=== PATIENT | female | born 1970 | race Hispanic/Latino ===

== ENCOUNTER 2024-03-14 01:22 | Inpatient (IN) | payer BC ==
[2024-03-14 02:09] LABS: #Basophils 0.03 10x3/uL (0.0-0.2); %Basophils 0.4 % (0.0-1.0); %Eosinophils 1.4 % (0.0-10.0); %Lymphocytes 36.5 % (21.0-51.0); %Monocytes 12.2 % (0.0-10.0); %Neutrophils 49.4 % (42.0-75.0); Hematocrit 38.8 % (36.0-47.0); Hemoglobin 13.3 g/dL (12.0-16.0); Mean Corpuscular HGB CONC 34.3 g/dL (32.0-36.0); Mean Corpuscular Hemoglobin 27.3 pg (27.0-31.0); Mean Corpuscular Volume 79.5 fL (78.0-98.0); Mean Platelet Volume 11.6 fL (7.4-10.4); Platelet Count 230 10x3/uL (130-400); RBC Distribution Width 13.4 % (11.5-14.5); Red Blood Cell (RBC) Count 4.88 mill/uL (4.20-5.40)
[2024-03-14] MEDS ORDERED: Sucralfate 1 GM/10 ML UDCUP ONE (02:12)
[2024-03-14] MEDS ORDERED: Famotidine/PF 20 mg/2ml Vial ONE (02:12)
[2024-03-14] MEDS ORDERED: Ondansetron PF 4 MG/2 ML Vial ONE (02:12)
[2024-03-14 02:15] LABS: Bacteria/HPF None Seen HPF (None Seen); Bilirubin Negative (Negative); Blood, Urine Negative (Negative); CAUTI Indications for Culture Pelvic or flank pain; Clarity Turbid (Clear); Glucose, Urine (Dipstick) Normal (Negative); Ketone, Urine Negative (Negative); Leukocyte Negative Leu/uL (Negative); Nitrite Negative (Negative); Protein, Urine (Dipstick) Negative (Neg-Trace); RBC/HPF 0-3 HPF (0-3); Specific Gravity, Urine 1.001 (1.002-1.036); Squamous Epithelial None Seen HPF (0-3); Urobilinogen Normal mg/dL (Less than 2); WBC/HPF 0-3 HPF (0-3)
[2024-03-14 02:17] LABS: Urine Culture Reflex No No
[2024-03-14 02:19] LABS: Amphetamine Not Detected (NotDetected); Barbiturates Screen Not Detected (NotDetected); Benzodiazepine Screen Not Detected (NotDetected); Cocaine Metabolite Screen Not Detected (NotDetected); Methadone Not Detected (NotDetected); Methamphetamine Not Detected (NotDetected); Opiate Screen Not Detected (NotDetected); Oxycodone Screen Not Detected (NotDetected); Phencyclidine (PCP) Not Detected (NotDetected); THC/Cannabinoid Screen Not Detected (NotDetected); Tricyclic Screen Not Detected (NotDetected)
[2024-03-14 02:27] LABS: ALT (SGPT) 47 U/L (8-55); AST (SGOT) 28 U/L (5-34); Acetaminophen Less than 10 mcg/mL (Less than 10); Albumin 4.2 g/dL (3.5-5.0); Alcohol Less than 10.0 mg/dL (Less than 10); Alkaline Phosphatase 119 U/L (40-110); Anion Gap 17 mmol/L (10-20); BUN (Urea Nitrogen) 10 mg/dL (9.8-20.1); Bilirubin, Total 1.3 mg/dL (0.2-1.2); CK (CPK) 21 U/L (29-168); Calc. Creatinine Clearance 0 mL/min (70-130); Calcium 12.6 mg/dL (7.8-10.44); Carbon Dioxide 24 mmol/L (22-29); Chloride 107 mmol/L (98-107); Estimated GFR 108; Globulin 3.3 g/dL (2.4-3.5); Glucose 125 mg/dL (70-105); Lipase 39 U/L (8-78); Magnesium 1.5 mg/dL (1.6-2.6); Potassium 2.7 mmol/L (3.5-5.1); Protein, Total 7.5 g/dL (6.0-8.3); Salicylate Less than 8.0 mg/dL (Less than 8.0); Sodium 145 mmol/L (136-145)
[2024-03-14] MEDS ORDERED: Mag-Al 1200 mg/1200 mg/30 ML UDCUP ONE (02:30)
[2024-03-14 02:32] LABS: Troponin I 0.028 ng/mL (< 0.028)
[2024-03-14] MEDS ORDERED: Lidocaine Viscous Sol 2% 15 ml UD Cup ONE (02:32)
[2024-03-14 02:33] LABS: Actual Bicarbonate (HCO3v) 25.5 mEq/L (22-28); Base Excess 5.1 mEq/L (-2.0 to +3.0); Calcium, Ionized (venous) 1.34 mmol/L (1.16-1.32); Chloride (VBG) 108 mmol/L (98-106); Hematocrit-VBG 37 % (36.0-47.0); Hemoglobin (Hb) 12.7 g/dL (11.7-16.0); Potassium (VBG) 2.94 mmol/L (3.70-5.30); Sodium 147 mmol/L (133-146); pH (venous) 7.611 (7.32-7.43)
[2024-03-14] MEDS ORDERED: Magnesium 2 GM/50 ML BAG (IN WATER) ONE (02:40)
[2024-03-14] MEDS ORDERED: Potassium Chloride 20 MEQ (100 mL) BAG ONE ×2 (03:04→03:06)
[2024-03-14] MEDS ORDERED: Labetalol HCl 100 MG/20 ML VIAL ONE (03:48)
[2024-03-14 05:08] LABS: Free T4 (Free Thyroxine) Greater than 5.00 ng/dL (0.70-1.48)
[2024-03-14] MEDS ORDERED: Lactated Ringer's 1,000 ML IV SCH (06:45)
[2024-03-14 07:08] VITALS: BMI 22.5
[2024-03-14] MEDS ORDERED: Acetaminophen 325 MG TAB PO PRN (07:21)
[2024-03-14] MEDS ORDERED: Ondansetron ODT 4 MG TAB PO PRN (07:21)
[2024-03-14] MEDS ORDERED: Electrolyte Replacement Protocol 1 EACH FS SCH (07:45)
[2024-03-14] MEDS ORDERED: Electrolyte Replacement Protocol FS PRN (07:45)
[2024-03-14] MEDS ORDERED: Potassium Chloride 20 MEQ TAB PO SCH (08:45)
[2024-03-14] MEDS: Methimazole 10 MG TAB PO SCH ×2 (10:31→12:31)
[2024-03-14] MEDS: Ondansetron PF 4 MG/2 ML Vial IVP PRN (10:37)
[2024-03-14] MEDS: NS 0.9% w/ 40 MEQ KCL 1,000 ML IV SCH (12:32)
[2024-03-14] MEDS ORDERED: Metoclopramide HCl 10 MG (2 mL) VIAL IVP SCH (14:00)
[2024-03-14] MEDS: Pantoprazole 40 MG VIAL IVP SCH ×2 (15:34→20:53)
[2024-03-14] MEDS: Propranolol 10 MG TAB PO PRN (20:52)
[2024-03-15] MEDS: hydrALAZINE 20 MG/ML VIAL SLOW IVP SCH (00:01)
[2024-03-15] MEDS: Metoclopramide HCl 10 MG (2 mL) VIAL IVP PRN (00:01)
[2024-03-15 04:33] LABS: #Basophils Less than 0.03 10x3/uL (0.0-0.2); %Basophils 0.2 % (0.0-1.0); %Eosinophils 0.5 % (0.0-10.0); %Lymphocytes 18.1 % (21.0-51.0); %Monocytes 9.1 % (0.0-10.0); %Neutrophils 71.7 % (42.0-75.0); Hematocrit 42.3 % (36.0-47.0); Hemoglobin 13.7 g/dL (12.0-16.0); Mean Corpuscular HGB CONC 32.4 g/dL (32.0-36.0); Mean Corpuscular Hemoglobin 27.2 pg (27.0-31.0); Mean Corpuscular Volume 83.9 fL (78.0-98.0); Platelet Count 219 10x3/uL (130-400); RBC Distribution Width 14.3 % (11.5-14.5); Red Blood Cell (RBC) Count 5.04 mill/uL (4.20-5.40)
[2024-03-15 04:56] LABS: Anion Gap 16 mmol/L (10-20); BUN (Urea Nitrogen) 13 mg/dL (9.8-20.1); Calc. Creatinine Clearance 82 mL/min (70-130); Calcium 13.4 mg/dL (7.8-10.44); Carbon Dioxide 26 mmol/L (22-29); Chloride 117 mmol/L (98-107); Estimated GFR 105; Glucose 111 mg/dL (70-105); Potassium 3.8 mmol/L (3.5-5.1); Sodium 155 mmol/L (136-145)
[2024-03-15] MEDS: Dextrose 5% in Water 1,000 ML IV SCH ×4 (05:57→15:42)
[2024-03-15 07:52] LABS: Phosphorus 4.8 mg/dL (2.3-4.7)
[2024-03-15] MEDS: Magnesium 2 GM/50 ML(in water) 2 GM in Premix 1 BAG IVPB SCH (08:04)
[2024-03-15] MEDS: CALCITONIN SALMON SYNTHETIC SC SCH (08:57)
[2024-03-15] MEDS ORDERED: Propranolol 40 MG TAB PO SCH (09:00)
[2024-03-15] MEDS ORDERED: fentaNYL 50 mcg/mL 1 mL Vial ONE (10:03)
[2024-03-15] MEDS ORDERED: PROPOFOL 0 ML ONE (10:03)
[2024-03-15 10:27] VITALS: BMI 22.5
[2024-03-15] MEDS: Aspirin 81 mg Enteric Coated Tablet PO SCH (10:57)
[2024-03-15] MEDS: Labetalol HCl 100 MG/20 ML VIAL SLOW IVP PRN (11:05)
[2024-03-15] MEDS ORDERED: ALPRAZolam 0.25 MG TAB PO PRN (11:18)
[2024-03-15 12:39] LABS: Troponin I 0.029 ng/mL (< 0.028)
[2024-03-15] MEDS: Propranolol 40 MG TAB PO SCH ×2 (12:40→14:14)
[2024-03-15] MEDS: Loratadine 10 MG TAB PO SCH (12:40)
[2024-03-15 19:43] LABS: Albumin 3.5 g/dL (3.5-5.0); Anion Gap 14 mmol/L (10-20); BUN (Urea Nitrogen) 16 mg/dL (9.8-20.1); BUN/Creatinine Ratio 29.09; Calc. Creatinine Clearance 103 mL/min (70-130); Calcium 9.7 mg/dL (7.8-10.44); Carbon Dioxide 23 mmol/L (22-29); Chloride 110 mmol/L (98-107); Estimated GFR 111; Glucose 178 mg/dL (70-105); Phosphorus 2.9 mg/dL (2.3-4.7); Potassium 3.2 mmol/L (3.5-5.1); Sodium 144 mmol/L (136-145)
[2024-03-16] MEDS ORDERED: Potassium Chloride 20 MEQ TAB ONE (09:00)
[2024-03-16] MEDS ORDERED: Loratadine 10 MG TAB ONE ×2 (09:00→09:23)
[2024-03-16] MEDS ORDERED: Pantoprazole DR 40 MG TAB ONE ×3 (09:00→20:18)
[2024-03-16] MEDS ORDERED: Aspirin 81 mg Enteric Coated Tablet ONE ×2 (09:00→09:23)
[2024-03-16] MEDS ORDERED: Methimazole 10 MG TAB ONE ×2 (09:23→10:00)
[2024-03-16] MEDS ORDERED: Propranolol 40 MG TAB ONE ×2 (14:00→21:10)
[2024-03-16] MEDS ORDERED: Ondansetron PF 4 MG/2 ML Vial ONE (17:55)
[2024-03-17] MEDS ORDERED: Methimazole 10 MG TAB ONE ×2 (01:29→18:09)
[2024-03-17] MEDS ORDERED: Labetalol HCl 100 MG/20 ML VIAL ONE ×2 (01:31→20:21)
[2024-03-17] MEDS ORDERED: Potassium Chloride 20 MEQ (100 mL) BAG ONE (05:32)
[2024-03-17] MEDS ORDERED: Propranolol 40 MG TAB ONE ×2 (05:32→15:03)
[2024-03-17] MEDS ORDERED: Amlodipine 5 MG TAB ONE (15:03)
[2024-03-17] MEDS: Loratadine 10 MG TAB PO SCH (17:48)
[2024-03-17] MEDS: FLU (Fluarix Triv) TS24-25(6MOS UP)/PF 45 MCG/0.5 ML Syringe IM ONE (17:50)
[2024-03-17] MEDS ORDERED: Ondansetron ODT 4 MG TAB ONE (20:32)
[2024-03-17 21:15] LABS: Potassium 3.7 mmol/L (3.5-5.1)
[2024-03-17 22:38] LABS: Anion Gap 15 mmol/L (10-20); BUN (Urea Nitrogen) 18 mg/dL (9.8-20.1); Calc. Creatinine Clearance 73 mL/min (70-130); Calcium 11.7 mg/dL (7.8-10.44); Carbon Dioxide 23 mmol/L (22-29); Chloride 115 mmol/L (98-107); Estimated GFR 92; Glucose 152 mg/dL (70-105); Potassium 3.9 mmol/L (3.5-5.1); Sodium 149 mmol/L (136-145)
[2024-03-17 22:41] LABS: #Basophils Less than 0.03 10x3/uL (0.0-0.2); %Basophils 0.4 % (0.0-1.0); %Eosinophils 2.3 % (0.0-10.0); %Lymphocytes 29.9 % (21.0-51.0); Hematocrit 38.3 % (36.0-47.0); Hemoglobin 12.7 g/dL (12.0-16.0); Mean Corpuscular HGB CONC 33.2 g/dL (32.0-36.0); Mean Corpuscular Hemoglobin 27.1 pg (27.0-31.0); Mean Corpuscular Volume 81.8 fL (78.0-98.0); Platelet Count 173 10x3/uL (130-400); RBC Distribution Width 13.7 % (11.5-14.5); Red Blood Cell (RBC) Count 4.68 mill/uL (4.20-5.40)
[2024-03-18] MEDS: Potassium Chloride 20 MEQ (100 mL) BAG ONE (04:07)
[2024-03-18 05:21] LABS: #Basophils Less than 0.03 10x3/uL (0.0-0.2); %Basophils 0.2 % (0.0-1.0); %Eosinophils 3.7 % (0.0-10.0); %Lymphocytes 36.9 % (21.0-51.0); Hematocrit 34.3 % (36.0-47.0); Hemoglobin 11.7 g/dL (12.0-16.0); Mean Corpuscular HGB CONC 34.1 g/dL (32.0-36.0); Mean Corpuscular Hemoglobin 27.5 pg (27.0-31.0); Mean Corpuscular Volume 80.5 fL (78.0-98.0); Platelet Count 167 10x3/uL (130-400); RBC Distribution Width 13.6 % (11.5-14.5); Red Blood Cell (RBC) Count 4.26 mill/uL (4.20-5.40)
[2024-03-18 05:58] LABS: Anion Gap 13 mmol/L (10-20); BUN (Urea Nitrogen) 14 mg/dL (9.8-20.1); Calc. Creatinine Clearance 93 mL/min (70-130); Calcium 11.3 mg/dL (7.8-10.44); Carbon Dioxide 25 mmol/L (22-29); Chloride 114 mmol/L (98-107); Estimated GFR 108; Glucose 87 mg/dL (70-105); Potassium 3.6 mmol/L (3.5-5.1); Sodium 148 mmol/L (136-145)
[2024-03-18] MEDS ORDERED: Labetalol HCl 100 MG/20 ML VIAL ONE (09:09)
[2024-03-18] MEDS ORDERED: Loratadine 10 MG TAB ONE (09:09)
[2024-03-18] MEDS ORDERED: Methimazole 10 MG TAB ONE (09:09)
[2024-03-18] MEDS: Amlodipine 5 MG TAB PO SCH ×2 (09:09→20:35)
[2024-03-18] MEDS ORDERED: Aspirin 81 mg Enteric Coated Tablet ONE (09:09)
[2024-03-18] MEDS ORDERED: Pantoprazole 40 MG VIAL ONE (09:09)
[2024-03-18] MEDS ORDERED: Amlodipine 5 MG TAB ONE (09:09)
[2024-03-18] MEDS ORDERED: Zoledronic Acid 4 MG in Sodium Chloride 0.9% 100 ML IVPB SCH (10:30)
[2024-03-18 10:43] LABS: Magnesium 1.2 mg/dL (1.6-2.6)
[2024-03-18] MEDS: Zoledronic Acid 4 MG in Sodium Chloride 0.9% 100 ML IVPB SCH (12:42)
[2024-03-18] MEDS: Magnesium Sulfate In Water 4 GM in Premix 1 BAG IVPB SCH (12:42)
[2024-03-18] MEDS: Potassium Chloride 20 MEQ TAB PO SCH ×2 (12:43→16:53)
[2024-03-18] MEDS: Dextrose 5% in Water 1,000 ML IV SCH (12:46)
[2024-03-18] MEDS ORDERED: Labetalol HCl 100 MG/20 ML VIAL SLOW IVP PRN (17:12)
[2024-03-18] MEDS ORDERED: cloNIDine 0.1 MG TAB PO PRN (17:13)
[2024-03-18] MEDS ORDERED: Fluticasone Propionate Nasal Spray 16 gm Bottle NASAL SCH (18:00)
[2024-03-18] MEDS ORDERED: Propranolol 40 MG TAB ONE (20:32)
[2024-03-18] MEDS: Senokot S 8.6-50 MG TAB PO SCH (20:35)
[2024-03-18] MEDS: Potassium Bicarbonate/Cit Ac 20 MEQ TAB PO SCH (20:41)
[2024-03-19] MEDS: Metoclopramide HCl 10 MG (2 mL) VIAL IVP SCH (04:08)
[2024-03-19 07:09] LABS: #Basophils Less than 0.03 10x3/uL (0.0-0.2); %Basophils 0.1 % (0.0-1.0); %Eosinophils 1.9 % (0.0-10.0); %Lymphocytes 8.7 % (21.0-51.0); %Monocytes 3.5 % (0.0-10.0); %Neutrophils 85.5 % (42.0-75.0); Hematocrit 34.6 % (36.0-47.0); Hemoglobin 11.7 g/dL (12.0-16.0); Mean Corpuscular HGB CONC 33.8 g/dL (32.0-36.0); Mean Corpuscular Hemoglobin 27.1 pg (27.0-31.0); Mean Corpuscular Volume 80.3 fL (78.0-98.0); Mean Platelet Volume 12.1 fL (7.4-10.4); Platelet Count 154 10x3/uL (130-400); RBC Distribution Width 12.7 % (11.5-14.5); Red Blood Cell (RBC) Count 4.31 mill/uL (4.20-5.40)
[2024-03-19 07:37] LABS: Phosphorus 2.4 mg/dL (2.3-4.7)
[2024-03-19 07:45] LABS: Anion Gap 11 mmol/L (10-20); BUN (Urea Nitrogen) 12 mg/dL (9.8-20.1); Calc. Creatinine Clearance 96 mL/min (70-130); Calcium 10.4 mg/dL (7.8-10.44); Carbon Dioxide 25 mmol/L (22-29); Chloride 103 mmol/L (98-107); Estimated GFR 109; Glucose 129 mg/dL (70-105); Potassium 3.3 mmol/L (3.5-5.1); Sodium 136 mmol/L (136-145)
[2024-03-19] MEDS ORDERED: Milk Of Magnesia 30 ML UDCUP PO PRN (08:22)
[2024-03-19] MEDS ORDERED: Bisacodyl 5 MG TAB PO PRN (08:22)
[2024-03-19] MEDS ORDERED: Bisacodyl 10 MG SUPP PR PRN (08:22)
[2024-03-19] MEDS: Potassium Chloride 20 MEQ TAB PO SCH (08:46)
[2024-03-19] MEDS: Potassium Bicarbonate/Cit Ac 20 MEQ TAB PO SCH (09:29)
[2024-03-19] MEDS: Senokot S 8.6-50 MG TAB PO SCH (09:37)
[2024-03-19] MEDS: Polyethylene Glycol 3350 17 GM Packet PO SCH (09:39)
[2024-03-19 11:17] LABS: Magnesium 1.2 mg/dL (1.6-2.6)
[2024-03-19] MEDS ORDERED: Propranolol 60 MG TAB PO SCH (13:00)
[2024-03-19] MEDS: Magnesium Sulfate In Water 4 GM in Premix 1 BAG IVPB SCH (13:59)
[2024-03-19 15:19] LABS: Hemoglobin A1c 5.7 % (4.0-6.0)
[2024-03-19 15:29] LABS: Anion Gap 13 mmol/L (10-20); BUN (Urea Nitrogen) 13 mg/dL (9.8-20.1); Calc. Creatinine Clearance 93 mL/min (70-130); Calcium 9.1 mg/dL (7.8-10.44); Carbon Dioxide 23 mmol/L (22-29); Chloride 103 mmol/L (98-107); Estimated GFR 108; Glucose 138 mg/dL (70-105); Potassium 3.8 mmol/L (3.5-5.1); Sodium 135 mmol/L (136-145)
[2024-03-19 15:30] LABS: ALT (SGPT) 31 U/L (8-55); AST (SGOT) 21 U/L (5-34); Albumin 3.2 g/dL (3.5-5.0); Alkaline Phosphatase 107 U/L (40-110); Bilirubin, Direct 0.3 mg/dL (0.1-0.3); Bilirubin, Total 0.9 mg/dL (0.2-1.2); Lipase 135 U/L (8-78); Protein, Total 6.1 g/dL (6.0-8.3)
[2024-03-19] MEDS: Propranolol 40 MG TAB PO SCH (21:10)
[2024-03-20 07:15] LABS: #Basophils Less than 0.03 10x3/uL (0.0-0.2); %Basophils 0.3 % (0.0-1.0); %Eosinophils 3.2 % (0.0-10.0); %Lymphocytes 36.2 % (21.0-51.0); %Monocytes 8.6 % (0.0-10.0); %Neutrophils 51.4 % (42.0-75.0); Hematocrit 31.6 % (36.0-47.0); Mean Corpuscular HGB CONC 34.8 g/dL (32.0-36.0); Mean Corpuscular Hemoglobin 27.4 pg (27.0-31.0); Mean Corpuscular Volume 78.8 fL (78.0-98.0); Mean Platelet Volume 11.6 fL (7.4-10.4); Platelet Count 135 10x3/uL (130-400); Red Blood Cell (RBC) Count 4.01 mill/uL (4.20-5.40)
[2024-03-20 07:32] LABS: Phosphorus 2.3 mg/dL (2.3-4.7)
[2024-03-20 07:35] LABS: ALT (SGPT) 53 U/L (8-55); AST (SGOT) 55 U/L (5-34); Albumin 3.2 g/dL (3.5-5.0); Alkaline Phosphatase 109 U/L (40-110); Anion Gap 14 mmol/L (10-20); BUN (Urea Nitrogen) 15 mg/dL (9.8-20.1); Bilirubin, Direct 0.4 mg/dL (0.1-0.3); Bilirubin, Total 0.7 mg/dL (0.2-1.2); Calc. Creatinine Clearance 100 mL/min (70-130); Calcium 8.3 mg/dL (7.8-10.44); Carbon Dioxide 22 mmol/L (22-29); Chloride 102 mmol/L (98-107); Estimated GFR 110; Glucose 86 mg/dL (70-105); Lipase 183 U/L (8-78); Magnesium 1.8 mg/dL (1.6-2.6); Potassium 3.4 mmol/L (3.5-5.1); Protein, Total 6.1 g/dL (6.0-8.3); Sodium 135 mmol/L (136-145)
[2024-03-20] MEDS: Magnesium 2 GM/50 ML(in water) 2 GM in Premix 1 BAG IVPB SCH (09:21)
[2024-03-20] MEDS: Potassium Chloride 20 MEQ TAB PO SCH (09:21)
[2024-03-20 12:01] VITALS: BP 107/62; TEMP 98.3
== END 2024-03-20 13:52 | disposition home or self-care (01) | DRG 643 ==
LOC: ERS 01:22 → OBS 06:44
PROVIDERS: ADMIT Hospitalist; ATTEND Family Medicine
DX: E05.90 Thyrotoxicosis, unspecified without thyrotoxic crisis or storm (principal); I50.21 Acute systolic (congestive) heart failure; E87.1 Hypo-osmolality and hyponatremia; E87.0 Hyperosmolality and hypernatremia; K59.00 Constipation, unspecified; E83.42 Hypomagnesemia; E83.52 Hypercalcemia; R51.9 Headache, unspecified; R59.9 Enlarged lymph nodes, unspecified; G47.00 Insomnia, unspecified; E87.6 Hypokalemia; I10 Essential (primary) hypertension; E86.0 Dehydration
CPT/HCPCS: 36415; 71045; 71275; 74177; 78072; 80048; 80053; 80076; 80306; 80307; 81001; 82306; 82550; 82805; 83036; 83605; 83690; 83735; 83880; 83970; 84100; 84238; 84439; 84443; 84445; 84481; 84484; 85025; 93005; 93306; 96374; 96375; A9500; J0360; J0630; J1800; J2405; J2470; J2704; J2765; J3010; J3475; J3480; J3489; J3490